=== PATIENT | female | born 1940 | race Caucasian/White ===

== ENCOUNTER 2017-02-09 04:18 | Emergency (ER) | payer MEDICARE, BC ==
[2017-02-09 04:47] VITALS: BP 143/55
[2017-02-09] MEDS ORDERED: Cephalexin CAP* 250 MG PO ONE (05:02)
--- NOTE | 2017-02-09 05:04 | ED ---
[facility] [place], scribed for Mihir August MD on 02/09/17 at 0457 . Skin Complaint - HPI Summary HPI Summary: Patient is a 76 y/o F who presents to the ED with a 5/10 complaint to left 1st toe since 0300 today. She reports erythema and edema to toe. She states that sx was not present yesterday, but woke her up this morning. She reports similar episode 15 years ago in [place]. She denies any recent injuries or PMHx of DM. She denies any allergies. - History of Current Complaint Chief Complaint: EDExtremityLower Time Seen by Provider: 02/09/17 04:54 Stated Complaint: LEFT BIG TOE RED AND PAINFUL Hx Obtained From: Patient Onset/Duration: Started Hours Ago, Atraumatic, Still Present Skin Exposure Onset/Duration: Hours Ago Timing: Lasting Hours Onset Severity: Moderate Current Severity: Moderate Pain Intensity: 5 Pain Scale Used: 0-10 Numeric Skin Location: Foot Character: Swelling, Redness Aggravating Symptom(s): Nothing Alleviating Symptom(s): Nothing Associated Signs & Symptoms: Negative - Allergy/Home Medications Allergies/Adverse Reactions: Allergies Allergy/AdvReac Type Severity Reaction Status Date / Time No Known Allergies Allergy Verified 02/09/17 04:41 PMH/Surg Hx/FS Hx/Imm Hx Endocrine/Hematology History: Denies: Hx Diabetes, Hx Thyroid Disease Cardiovascular History: Reports: Hx Hypertension Respiratory History: Denies: Hx Asthma, Hx Chronic Obstructive Pulmonary Disease (COPD) GI History: Denies: Hx Ulcer Musculoskeletal History: Denies: Hx Osteoporosis - Cancer History Hx Chemotherapy: No Hx Radiation Therapy: No - Surgical History Surgery Procedure, Year, and Place: exploratory laparotomy, hysterectomy Infectious Disease History: No Infectious Disease History: Denies: Hx Hepatitis, Hx Human Immunodeficiency Virus (HIV), Traveled Outside the [place] in Last 30 Days - Family History Known Family History: Negative: Hypertension - Social History Alcohol Use: Rare Hx Substance Use: No Substance Use Type: Reports: None Hx Tobacco Use: Yes Smoking Status (MU): Light Every Day Tobacco Smoker Review of Systems Negative: Fever Positive: Other - Erythema and edema to left 1st toe. All Other Systems Reviewed And Are Negative: Yes Physical Exam Triage Information Reviewed: Yes Vital Signs On Initial Exam: Initial Vitals Temp Pulse Resp BP Pulse Ox 98.1 F 59 16 156/62 95 02/09/17 04:27 02/09/17 04:27 02/09/17 04:27 02/09/17 04:27 02/09/17 04:27 Vital Signs Reviewed: Yes Appearance: Positive: Well-Appearing, No Pain Distress Skin: Positive: Warm, Other - tender erythematous, swollen 1st toe Eyes: Positive: Normal ENT: Positive: Hearing grossly normal Neck: Positive: Supple Respiratory/Lung Sounds: Positive: Breath Sounds Present Cardiovascular: Positive: RRR Abdomen Description: Positive: Nontender, Soft Bowel Sounds: Positive: Present Musculoskeletal: Positive: Strength/ROM Intact Diagnostics - Vital Signs Vital Signs Temp Pulse Resp BP Pulse Ox 02/09/17 04:39 98.0 F 58 16 143/55 97 02/09/17 04:27 98.1 F 59 16 156/62 95 - Laboratory Lab Statement: Any lab studies that have been ordered have been reviewed, and results considered in the medical decision making process. Course/Dx - Course Course Of Treatment: 76 y/o F presents with a 5/10 complaint to left 1st toe since 0300 today. She reports erythema and edema to toe. She denies any recent injuries or PMHx of DM. Pt will be DCd on Keflex. - Diagnoses Provider Diagnoses: Cellulitis Discharge - Discharge Plan Condition: Stable Disposition: HOME Prescriptions: Cephalexin CAP* [Keflex CAP*] 250 mg PO QID #30 cap Patient Education Materials: Cellulitis (ED) Referrals: Gia Mauricio MD [Primary Care Provider] - Additional Instructions: Please follow up with your primary care provider. The documentation as recorded by the [facility] [place] accurately reflects the service I personally performed and the decisions made by , Mihir August MD.
== END 2017-02-09 05:15 | disposition home or self-care (01) ==
LOC: ED 04:18
DX: L03.032 Cellulitis of left toe (principal); I10 Essential (primary) hypertension; F17.210 Nicotine dependence, cigarettes, uncomplicated
CPT/HCPCS: 99281; A9270-GY

== ENCOUNTER 2017-04-29 16:12 | Emergency (ER) | payer MEDICARE, BC ==
--- NOTE | 2017-04-29 17:39 | RAD ---
HISTORY: Cough, congestion COMPARISONS: None VIEWS: 4: Frontal dual-energy and lateral views of the chest. FINDINGS: CARDIOMEDIASTINAL SILHOUETTE: The cardiomediastinal silhouette is normal. STU: The stu are normal. PLEURA: The costophrenic angles are sharp. No pleural abnormalities are noted. LUNG PARENCHYMA: There is hyperinflation with flattening of the diaphragm and expansion of the AP diameter of the chest. ABDOMEN: The upper abdomen is clear. There is no subphrenic gas. BONES AND SOFT TISSUES: No bone or soft tissue abnormalities are noted. OTHER: None. IMPRESSION: HYPERINFLATION, CONSISTENT WITH COPD. NO ACTIVE CARDIOPULMONARY DISEASE.
--- NOTE | 2017-04-29 18:40 | ED ---
Throat Pain/Nasal Congestion - HPI Summary HPI Summary: Pt here w/ URI sx x 5 days. Started as copious clear rhinorrhea. This has progressed to nasal congestion and dry cough. Denies fever, chills, N/V/D, otalgia, ST, chest pain, SOB, ab pain, rash of body aches. She came in as she never gets sick and is concerned that she gets fatigued long-term through the day since sick. Smokes - no known h/o COPD, asthma, bronchitis, pneumonia. Has tried Vicks vapor rub, saline nasal spray. 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 Otherwise lives alone. - History of Current Complaint Chief Complaint: EDFluSymptoms Time Seen by Provider: 04/29/17 18:26 Hx Obtained From: Patient - Allergies/Home Medications Allergies/Adverse Reactions: Allergies Allergy/AdvReac Type Severity Reaction Status Date / Time No Known Allergies Allergy Verified 04/29/17 16:18 PMH/Surg Hx/FS Hx/Imm Hx Previously Healthy: Yes Endocrine/Hematology History: Denies: Hx Diabetes, Hx Thyroid Disease - in the process of parathyroid w/u for hypercalcemia, Autoimmune Disease Cardiovascular History: Reports: Hx Hypercholesterolemia, Hx Hypertension Denies: Hx Congenital Heart Disease, Hx Congestive Heart Failure, Hx Myocardial Infarction Respiratory History: Denies: Hx Asthma, Hx Chronic Obstructive Pulmonary Disease (COPD) GI History: Denies: Hx Gastroesophageal Reflux Disease, Hx Ulcer Musculoskeletal History: Denies: Hx Osteoporosis Sensory History: Reports: Hx Contacts or Glasses Opthamlomology History: Reports: Hx Contacts or Glasses - Cancer History Hx Chemotherapy: No Hx Radiation Therapy: No - Surgical History Surgery Procedure, Year, and Place: exploratory laparotomy, hysterectomy Infectious Disease History: No Infectious Disease History: Denies: Hx Hepatitis, Hx Human Immunodeficiency Virus (HIV), Traveled Outside the [place] in Last 30 Days - Family History Known Family History: Negative: Hypertension - Social History Occupation: Employed Part-time - [employer] Lives: Alone Alcohol Use: Rare Hx Substance Use: No Substance Use Type: Reports: None Hx Tobacco Use: Yes Smoking Status (MU): Current Every Day Smoker Review of Systems Positive: Fatigue - see HPI. Negative: Fever, Chills Eyes: Negative Negative: Drainage, Erythema ENT: Other - see HPI Cardiovascular: Negative Positive: Cough - see HPI Gastrointestinal: Negative Genitourinary: Other - urinating less than usual - concerned about dehydration Negative: burning, dysuria, discharge, frequency, flank pain, incontinence, pain , urgency Musculoskeletal: Negative Skin: Negative Neurological: Negative Psychological: Normal All Other Systems Reviewed And Are Negative: Yes Physical Exam Triage Information Reviewed: Yes Vital Signs On Initial Exam: Initial Vitals Temp Pulse Resp BP Pulse Ox 99.3 F 69 15 101/72 98 04/29/17 16:15 04/29/17 16:15 04/29/17 16:15 04/29/17 16:15 04/29/17 16:15 Vital Signs Reviewed: Yes Appearance: Positive: Well-Appearing - lying on stretcher, reading book, pleasant, extensive conversationalist, thorough, No Pain Distress, Well- Nourished Skin: Positive: Warm, Dry - no rash Head/Face: Positive: Normal Head/Face Inspection - SInuses NTTP Eyes: Positive: Normal, EOMI, PADDY, Conjunctiva Clear. Negative: Conjunctiva Inflammed, Discharge ENT: Positive: Hearing grossly normal, Pharyngeal erythema - cobblestoning, Nasal congestion, TMs normal. Negative: Nasal drainage, Tonsillar swelling, Tonsillar exudate, Trismus, Muffled/hoarse voice Neck: Positive: Supple, Nontender, No Lymphadenopathy Respiratory/Lung Sounds: Positive: Clear to Auscultation, Breath Sounds Present. Negative: Rales, Rhonchi, Stridor, Wheezes Cardiovascular: Positive: Normal, RRR, S1, S2. Negative: Murmur, Rub, Leg Edema Left, Leg Edema Right Abdomen Description: Positive: Nontender, No Organomegaly, Soft Bowel Sounds: Positive: Present Musculoskeletal: Positive: Normal, Strength/ROM Intact Neurological: Positive: Normal, Sensory/Motor Intact, Alert, Oriented to Person Place, Time, CN Intact II-III Psychiatric: Positive: Normal Diagnostics - Vital Signs Vital Signs Temp Pulse Resp BP Pulse Ox 04/29/17 16:15 99.3 F 69 15 101/72 98 - Laboratory Lab Results: Lab Results 04/29/17 Range/Units 17:35 Influenza A (Rapid) Negative (Negative) Influenza B (Rapid) Negative (Negative) Lab Statement: Any lab studies that have been ordered have been reviewed, and results considered in the medical decision making process. EENT Course/Dx - Course Course Of Treatment: Pt presents w/ viral URI sx - influenza swabs neg (weak clinical presentation for influenza but given lack of vaccine, checked). Her CXR is also clear for acute pathology although she appears to have physical findings of COPD - given her h/o smoking, discussed this findings and f/u care through PCP. Also encouraged cessation. Otherwise dx'd w/ viral URI and conservative care results provided. Return to ED if danger s/sx present. - Diagnoses Provider Diagnoses: Viral URI, COPD (chronic obstructive pulmonary disease) Discharge - Discharge Plan Condition: Stable Disposition: HOME Patient Education Materials: Upper Respiratory Infection (ED), COPD (Chronic Obstructive Pulmonary Disease) (ED) Referrals: Gia Mauricio MD [Primary Care Provider] - Additional Instructions: You appear to have a viral URI. This may last for 7-14 days. Follow-up with PCP this week as you have a new radiographic diagnosis of COPD. This may prolong cough aspect of illness. Smoking cessation is best form of treatment and sometimes inhaled medications are used as well. If further treatment is required , PCP will review this with you. Continue saline nasal spray and Vicks vapor rub. You may also try the following: Salt water throat gargle 2 x day Drink 60+ ounces of water daily Sleep 8+ hours per night Avoid Dairy and sugar Hot herbal/decaf tea with lemon & honey Chicken broth (preferably organic, free range chicken) Humidifier in house, but especially near bed at night Try a facial steam with or without eucalyptus essential oil Consider taking Vitamin D3 5,000iu and Vitamin C 1,000mg every day during illness *If you develop fever, chills, shortness of breath, vomiting, neck pain, headache, return to ED
[2017-04-29 19:24] VITALS: BP 145/55
== END 2017-04-29 19:12 | disposition home or self-care (01) ==
LOC: ED 16:12
DX: J06.9 Acute upper respiratory infection, unspecified (principal); J44.9 Chronic obstructive pulmonary disease, unspecified
CPT/HCPCS: 71020; 87502; 99282

== ENCOUNTER 2017-11-07 07:55 | Day surgery (SDC) | payer MEDICARE, BC ==
[~2017-11-07 07:55] MED LIST: Acetaminophen TAB* 325 MG PO PRN; Buffered Lidocaine 0.9% SYRIN* 5 ML/SYR SYRINGE INTRADERM ONE; Cyclopentolate 1% OPTH.SOL* 2 ML BTL ONE; Ketorolac 0.5% OPHTH (NF) 0.5 % 5 ML BTL ONE; Lidocaine 1% MPF* 2 ML VIAL ONE; Lidocaine 2% EPI 1:200000 MPF*10-20 ML VIAL ONE; Neomycin/Polymy/Dex OPTH.SUSP* MAXITROL 0.1% 5 ML ONE; Phenylephrine 2.5% OPTH.SOL* 2 ML BTL ONE; Povidone Iodine 5% OPTH* 30 ML BTL ONE; Proparacaine 0.5% OPHTH.SOL* 15 ML BTL ONE; acetaZOLAMIDE TAB* 250 MG ONE
[2017-11-07] MEDS ORDERED: Midazolam* 1 MG/ML 2 ML VIAL (2 MG) ONE ×2 (07:58→11:18)
[2017-11-07] MEDS ORDERED: fentaNYL* 50 MCG/ML 2 ML VIAL (100 MCG VIAL) ONE (11:20)
--- NOTE | 2017-11-07 11:45 | OP ---
DATE OF OPERATION: 11/07/2017. DATE OF : 1940. SURGEON: Andres Mckinney M.D. PREOPERATIVE DIAGNOSIS: Cataract right eye. POSTOPERATIVE DIAGNOSIS: Cataract right eye. OPERATIVE PROCEDURE: Extracapsular cataract extraction with intraocular lens implant right eye. PROCEDURE: The patient was brought to the operating room after being given 1/2% Alcaine with epineph rine drops in the preoperative area. The eye was prepped and draped in the usual sterile fashion. S terile drape and eyelid speculum were placed. Again, topical 1/2% Alcaine with epinephrine was given . A paracentesis incision was made at the 9 o'clock position with the No.75 blade. Clear cornea inc ision 2.2 x 2.2-mm was created at the 12 o'clock position starting at the anterior limbus using the 2 .2-mm keratome. The anterior chamber was irrigated with 0.4 mL of 1% non-preservative intracameral l idocaine and filled with DisCoVisc. A capsulorrhexis was completed using the cystotome and the Utrat a forceps. Hydrodissection was performed with balanced salt solution. The lens nucleus was removed w ith the Phacoemulsification handpiece without incident. Cortex was removed with the irrigation-aspir ation handpiece. The capsular bag was re-inflated using DisCoVisc and an [id number] implant was inser stacie with the shooter. The irrigation-aspiration handpiece was used to remove all residual DisCoVisc. The eye was refilled with balanced salt solution and the wound checked and found to be watertight. Topical Maxitrol drops were given. [id number]/[facility] #: [id number]
[2017-11-07 12:02] VITALS: BP 112/64
== END 2017-11-07 12:10 | disposition home or self-care (01) ==
LOC: OREAST 07:55
PROVIDERS: ATTEND Specialist
DX: H25.811 Combined forms of age-related cataract, right eye (principal); H43.813 Vitreous degeneration, bilateral; F17.210 Nicotine dependence, cigarettes, uncomplicated; I10 Essential (primary) hypertension; E78.00 Pure hypercholesterolemia, unspecified; F41.8 Other specified anxiety disorders
CPT/HCPCS: A9270-GY; J2250; J3010; V2632

== ENCOUNTER 2017-11-14 09:24 | Day surgery (SDC) | payer MEDICARE, BC ==
[~2017-11-14 09:24] MED LIST changes: -Cyclopentolate 1% OPTH.SOL* 2 ML BTL ONE; -Ketorolac 0.5% OPHTH (NF) 0.5 % 5 ML BTL ONE; -Lidocaine 1% MPF* 2 ML VIAL ONE; -Lidocaine 2% EPI 1:200000 MPF*10-20 ML VIAL ONE; -Neomycin/Polymy/Dex OPTH.SUSP* MAXITROL 0.1% 5 ML ONE; -Phenylephrine 2.5% OPTH.SOL* 2 ML BTL ONE; -Povidone Iodine 5% OPTH* 30 ML BTL ONE; -Proparacaine 0.5% OPHTH.SOL* 15 ML BTL ONE; -acetaZOLAMIDE TAB* 250 MG ONE
[2017-11-14] MEDS ORDERED: Lidocaine 1% MPF* 2 ML VIAL ONE (09:31)
[2017-11-14] MEDS ORDERED: Ketorolac 0.5% OPHTH (NF) 0.5 % 5 ML BTL ONE (09:31)
[2017-11-14] MEDS ORDERED: Proparacaine 0.5% OPHTH.SOL* 15 ML BTL ONE (09:31)
[2017-11-14] MEDS ORDERED: acetaZOLAMIDE TAB* 250 MG ONE (09:31)
[2017-11-14] MEDS ORDERED: Lidocaine 2% EPI 1:200000 MPF*10-20 ML VIAL ONE (09:31)
[2017-11-14] MEDS ORDERED: Povidone Iodine 5% OPTH* 30 ML BTL ONE (09:31)
[2017-11-14] MEDS ORDERED: Cyclopentolate 1% OPTH.SOL* 2 ML BTL ONE (09:31)
[2017-11-14] MEDS ORDERED: Neomycin/Polymy/Dex OPTH.SUSP* MAXITROL 0.1% 5 ML ONE (09:31)
[2017-11-14] MEDS ORDERED: Phenylephrine 2.5% OPTH.SOL* 2 ML BTL ONE (09:31)
[2017-11-14] MEDS ORDERED: Midazolam* 1 MG/ML 2 ML VIAL (2 MG) ONE ×2 (11:38→11:44)
[2017-11-14 12:15] VITALS: BP 110/45
--- NOTE | 2017-11-14 16:02 | OP ---
DATE OF OPERATION: 11/14/17 - [facility] DATE OF : 42 SURGEON: Andres Mckinney MD. PREOPERATIVE DIAGNOSIS: Cataract, left eye. POSTOPERATIVE DIAGNOSIS: Cataract, left eye. OPERATIVE PROCEDURE: Extracapsular cataract extraction with IOL left eye. DESCRIPTION OF PROCEDURE: The patient was brought to the operating room after being given 1/2% Alcaine with epinephrine drops in the preoperative area. The eye was prepped and draped in the usual sterile fashion. Sterile drape and eyelid speculum were placed. Again, topical 1/2% Alcaine with epinephrine was given. A paracentesis incision was made at the 3 o'clock position with the No.75 blade. Clear cornea incision 2.2 x 2.2-mm was created at the 6 o'clock position starting at the anterior limbus using the 2.2-mm keratome. The anterior chamber was irrigated with 0.4 mL of 1% non-preservative intracameral lidocaine and filled with DisCoVisc. A capsulorrhexis was completed using the cystotome and the Utrata forceps. Hydrodissection was performed with balanced salt solution. The lens nucleus was removed with the Phacoemulsification handpiece without incident. Cortex was removed with the irrigation-aspiration handpiece. The capsular bag was re-inflated using DisCoVisc and an [id number] 21.5 implant was inserted with the shooter. The irrigation-aspiration handpiece was used to remove all residual DisCoVisc. The eye was refilled with balanced salt solution and the wound checked and found to be watertight. Topical Maxitrol drops were given. [id number]/[facility] #: [id number] [facility]
== END 2017-11-14 12:24 | disposition home or self-care (01) ==
LOC: OREAST 09:24
PROVIDERS: ATTEND Specialist
DX: H25.812 Combined forms of age-related cataract, left eye (principal); H43.813 Vitreous degeneration, bilateral; F17.210 Nicotine dependence, cigarettes, uncomplicated; I10 Essential (primary) hypertension; J44.9 Chronic obstructive pulmonary disease, unspecified; E78.00 Pure hypercholesterolemia, unspecified; E21.3 Hyperparathyroidism, unspecified
CPT/HCPCS: A9270-GY; J2250; V2632